=== PATIENT | male | born 1970 | race Caucasian/White ===

== ENCOUNTER 2019-01-14 19:07 | Emergency (ER) | payer OTHER ==
[~2019-01-14] VITALS: Ht 172.7 cm; Wt 113.4 kg
[2019-01-14 20:04] VITALS: BP 152/96
[2019-01-14] MEDS ORDERED: NAPROXEN 500 MG TABLET PO STA (20:17)
[2019-01-14] MEDS ORDERED: ONDANSETRON ODT 4 MG TAB.RAPDIS. PO ONE (20:30)
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
[2019-01-14] MEDS ORDERED: NAPR-514 PO (22:02)
[2019-01-14] MEDS ORDERED: ORPH100T PO (22:02)
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
== END 2019-01-14 22:13 | disposition home or self-care (01) ==
LOC: ER 19:07
DX: S16.1XXA Strain of muscle, fascia and tendon at neck level, initial encounter (principal); M54.6 Pain in thoracic spine; R51 Headache; M54.2 Cervicalgia; K21.9 Gastro-esophageal reflux disease without esophagitis; I10 Essential (primary) hypertension; V87.7XXA Person injured in collision between other specified motor vehicles (traffic), initial encounter; Y93.89 Activity, other specified; Y92.488 Other paved roadways as the place of occurrence of the external cause; Y99.8 Other external cause status
CPT/HCPCS: 70450; 72072; 72125; 99284; Q0162